=== PATIENT | female | born 1945 | race African-American/Black ===

== ENCOUNTER 2017-09-02 00:19 | Emergency (ER) | payer MEDICAID, MEDICARE ==
[~2017-09-02] VITALS: Ht 172.7 cm; Wt 61.0 kg
[~2017-09-02 00:19] MED LIST: HYDR12.529; LISI10TA5; MELO-106; OMEP20TA15
[2017-09-02] MEDS ORDERED: CLINDAMYCIN 600 MG in DEXTROSE 5% WATER 50 ML IV ONE (01:30)
[2017-09-02] MEDS ORDERED: HYDROCODONE/APAP 7.5/325MG 1 TAB TABLET PO ONE (01:30)
[2017-09-02] MEDS ORDERED: TETANUS, DIPHTHERIA, PERTUSSIS VAC/PF 0.5ML (>7YR OLD) IM ONE (01:30)
[2017-09-02] MEDS ORDERED: LIDOCAINE HCL 1% 20ML VIAL (Pyxis) INJ MC ONE (01:30)
[2017-09-02] MEDS ORDERED: BACITRACIN ZINC OINT UDPKT TOP ONE (04:45)
[2017-09-02 04:56] VITALS: BP 127/74
== END 2017-09-02 05:00 | disposition home or self-care (01) ==
LOC: ER 00:19
DX: S01.511A Laceration without foreign body of lip, initial encounter (principal); I10 Essential (primary) hypertension; F17.200 Nicotine dependence, unspecified, uncomplicated; W01.0XXA Fall on same level from slipping, tripping and stumbling without subsequent striking against object, initial encounter; Y93.89 Activity, other specified; Y92.89 Other specified places as the place of occurrence of the external cause; Y99.8 Other external cause status
CPT/HCPCS: 12051; 70450; 70486; 72125; 90471; 90715; 96365; 99284; J3490; J7060

== ENCOUNTER 2018-06-20 23:19 | Emergency (ER) | payer OTHER, MEDICAID ==
[~2018-06-20] VITALS: Ht 167.6 cm; Wt 59.0 kg
[2018-06-21] MEDS ORDERED: KETOROLAC 60MG/2ML VIAL IM ONE
[2018-06-21 02:33] VITALS: BP 134/99
== END 2018-06-21 03:01 | disposition home or self-care (01) ==
LOC: ER 23:36
DX: M25.551 Pain in right hip (principal); I10 Essential (primary) hypertension; F10.10 Alcohol abuse, uncomplicated; F17.200 Nicotine dependence, unspecified, uncomplicated; W01.0XXA Fall on same level from slipping, tripping and stumbling without subsequent striking against object, initial encounter; Y93.89 Activity, other specified; Y92.89 Other specified places as the place of occurrence of the external cause
CPT/HCPCS: 72170; 96372; 99283; J1885; J7040

== ENCOUNTER 2021-04-30 13:10 | Emergency (ER) | payer OTHER, MEDICAID ==
[~2021-04-30] VITALS: Ht 154.9 cm; Wt 47.0 kg
[~2021-04-30 13:10] MED LIST changes: +LISI10TA26; -LISI10TA5
[2021-04-30 13:17] VITALS: BP 149/114
[2021-04-30] MEDS ORDERED: DONE5TAB26 PO (13:21)
[2021-04-30 16:58] LABS: CLARITY URINE CLEAR (CLEAR); COLOR URINE YELLOW (YELLOW)
[2021-04-30 16:59] LABS: KETONES URINE NEGATIVE (NEGATIVE); NITRITE URINE NEGATIVE (NEGATIVE); OCCULT BLOOD URINE NEGATIVE (NEGATIVE); PROTEIN URINE NEGATIVE (NEGATIVE); SPECIFIC GRAVITY URINE 1.018 (1.005-1.030)
[2021-04-30 17:00] LABS: LEUKOCYTE ESTERASE URINE NEGATIVE (NEGATIVE); UROBILINOGEN URINE 0.2 E.U./dL (0.2-1.0)
[2021-04-30] MEDS ORDERED: NAPR-681 MT (19:37)
[2021-04-30] MEDS ORDERED: ACET650T37 MT (19:37)
== END 2021-04-30 20:15 | disposition home or self-care (01) ==
LOC: ER 13:10
DX: M51.16 Intervertebral disc disorders with radiculopathy, lumbar region (principal); M54.50 Low back pain, unspecified; F03.90 Unspecified dementia, unspecified severity, without behavioral disturbance, psychotic disturbance, mood disturbance, and anxiety; I10 Essential (primary) hypertension; D64.9 Anemia, unspecified
CPT/HCPCS: 72131; 81003; 99284